=== PATIENT | female | born 1950 | race Caucasian/White ===

== ENCOUNTER 2017-12-03 15:48 | Emergency (ER) | payer MEDICARE, OTHER ==
[2017-12-03 16:07] VITALS: BP 118/84
[2017-12-03] MEDS ORDERED: Albuterol/Ipratropium 3.0-0.5 MG/3 ML Neb Soln NEB ONE (16:54)
--- NOTE | 2017-12-03 17:04 | EDM.PDOC ---
Scribed by Lian Le 12/03/17 [id number] for Manfred Herring MD ED HPI GENERAL MEDICAL PROBLEM - General Chief Complaint: Lower Extremity Injury/Pain Stated Complaint: ANKLE/CALF SWOLLEN,PAINFUL [id number] Time Seen by Provider: 12/03/17 16:36 Source of Information: Reports: Patient, RN, RN Notes Reviewed History Limitations: Reports: No Limitations - History of Present Illness INITIAL COMMENTS - FREE TEXT/NARRATIVE: Patient presents with complaint of gradual onset of right calf tenderness, which has become severely painful with mild swelling. Denies injury. This past week she used clearing solution and "burnt her lungs". Since that time she has had some cough with sputum. Denies fever or chills. She has also had a sore throat since that time. She stopped all of her medications last week because swallowing her pills makes her throat worse. She continues to smoke. She has cough with thick green sputum. Duration: Getting Worse Location: Reports: Lower Extremity, Right Quality: Reports: Ache Severity: Severe Improves with: Reports: None Worsens with: Reports: None Left Lower Leg Pain Score (Numeric/FACES): 10 - Related Data Allergies Allergy/AdvReac Type Severity Reaction Status Date / Time No Known Allergies Allergy Verified 11/27/13 13:53 Home Meds: Home Meds Anastrozole [Arimidex] 1 mg PO DAILY 11/27/13 [History] Aspirin [Aspirin EC] 325 mg PO DAILY PRN 11/27/13 [History] Calcium Carbonate/Vitamin D3 [Calcium 600 + Vit D Tablet] 1 each PO DAILY [History] Isosorbide Mononitrate [Isosorbide Mononitrate ER] 30 mg PO DAILY 11/27/13 [ History] Lisinopril 5 mg PO DAILY 11/27/13 [History] Metoprolol Succinate [Toprol XL] 50 mg PO DAILY 11/27/13 [History] Nitroglycerin [Nitrostat] 0.4 mg SL ASDIRECTED PRN 11/27/13 [History] Simvastatin [Zocor] 20 mg PO ACBRKBED 11/27/13 [History] Sertraline [Zoloft] 25 mg PO DAILY 12/18/13 [History] Aspirin [Adult Low Dose Aspirin EC] 81 mg PO DAILY 08/13/14 [History] Past Medical History HEENT History: Reports: Impaired Vision Cardiovascular History: Reports: High Cholesterol, Hypertension Respiratory History: Reports: COPD Social & Family History - Family History Family Medical History: Noncontributory - Tobacco Use Smoking Status *Q: Current Every Day Smoker Years of Tobacco use: 50 Packs/Tins Daily: 1.5 - Caffeine Use Caffeine Use: Reports: Coffee - Alcohol Use Days Per Week of Alcohol Use: 3 Number of Drinks Per Day: 2 Total Drinks Per Week: 6 - Recreational Drug Use Recreational Drug Use: No Review of Systems - Review of Systems Review Of Systems: ROS reveals no pertinent complaints other than HPI. ED EXAM, GENERAL - Physical Exam Exam: See Below Exam Limited By: No Limitations General Appearance: Other (chronically ill appearing and frail) Nose: Normal Inspection, Normal Mucosa, No Blood Throat/Mouth: Other (pharyngeal erythema.) Head: Atraumatic, Normocephalic Neck: Normal Inspection, Supple, Non-Tender, Full Range of Motion Respiratory/Chest: No Respiratory Distress, No Accessory Muscle Use, Chest Non- Tender, Decreased Breath Sounds (inthe bases.), Crackles, Wheezing, Prolonged Expiration. No: Rales, Rhonchi Cardiovascular: Regular Rate, Rhythm, Tachycardia Extremities: Normal Range of Motion, Slow Capillary Refill (bilateral lower extremities. ), Dedra's Sign (right ). No: Increased Warmth, Mottled, Pallor, Redness Neurological: Alert, Oriented, No Motor/Sensory Deficits Psychiatric: Normal Mood Skin Exam: Warm, Dry, Intact, Normal Color, No Rash Course - Vital Signs Last Recorded V/S: Last Vital Signs Temp 36.0 C 12/03/17 16:06 Pulse 111 H 12/03/17 16:06 Resp 16 12/03/17 16:06 BP 118/84 12/03/17 16:06 Pulse Ox 98 12/03/17 16:06 - Orders/Labs/Meds Orders: Active Orders 24 hr Category Date Time Status RT Aerosol Therapy [RC] ASDIRECTED Care 12/03/17 16:57 Active CULTURE SPUTUM + SMEAR [RM] Stat Lab 12/03/17 16:56 Ordered Meds: Medications Discontinued Medications Generic Name Dose Route Start Last Admin Trade Name Freq PRN Reason Stop Dose Admin Albuterol/Ipratropium 3 ml 12/03/17 16:54 Duoneb 3.0-0.5 Mg/3 Ml NEB 12/03/17 16:55 ONETIME ONE Departure - Departure Time of Disposition: 17:00 Disposition: DC/Tfer to Acute Hospital 02 Condition: Serious Clinical Impression: Pain of right lower extremity, COPD with exacerbation DVT (deep venous thrombosis) Qualifiers: DVT location: lower extremity Affected thrombotic vein of extremity: unspecified vein of extremity Chronicity: acute Laterality: right Qualified Code (s): I82.401 - Acute embolism and thrombosis of unspecified deep veins of right lower extremity - Discharge Information Forms: ED Department Discharge, Interfacility Transfer EMTALA - My Orders Last 24 Hours: My Active Orders 12/03/17 16:56 CULTURE SPUTUM + SMEAR [RM] Stat 12/03/17 16:57 RT Aerosol Therapy [RC] ASDIRECTED - Assessment/Plan Last 24 Hours: My Active Orders 12/03/17 16:56 CULTURE SPUTUM + SMEAR [RM] Stat 12/03/17 16:57 RT Aerosol Therapy [RC] ASDIRECTED I have read and agree with the documentation that has been completed regarding this visit. By signing this record, I attest that the documentation was completed in my physical presence and is an accurate record of the encounter.
== END 2017-12-03 17:28 ==
LOC: DL.ED 15:48
DX: I82.401 Acute embolism and thrombosis of unspecified deep veins of right lower extremity (principal); J44.1 Chronic obstructive pulmonary disease with (acute) exacerbation; I10 Essential (primary) hypertension; E78.00 Pure hypercholesterolemia, unspecified; F17.210 Nicotine dependence, cigarettes, uncomplicated; Z79.82 Long term (current) use of aspirin; Z79.899 Other long term (current) drug therapy
CPT/HCPCS: 94640; 99284

== ENCOUNTER 2018-02-08 21:27 | Emergency (ER) | payer MEDICARE, OTHER ==
[2018-02-08 21:56] VITALS: BP 158/81
[2018-02-08 23:22] LABS: CHLORIDE,CL 102 mmol/L (101-111); SODIUM,NA 139 mmol/L (135-145)
--- NOTE | 2018-02-08 23:45 | EDM.PDOC ---
ED HPI GENERAL MEDICAL PROBLEM - General Chief Complaint: Lower Extremity Injury/Pain Stated Complaint: [id number] BLOOD CLOT IN LEG Time Seen by Provider: 02/08/18 22:00 Source of Information: Reports: Patient History Limitations: Reports: No Limitations - History of Present Illness INITIAL COMMENTS - FREE TEXT/NARRATIVE: c/o swelling in both legs past week,, seemed worse tonight [employer], now better after having feet elevated. Hx blood clots 3 months ago. Off warfarin one month , no pain. Smoker Bilateral Lower Leg Pain Score (Numeric/FACES): 8 - Related Data Allergies Allergy/AdvReac Type Severity Reaction Status Date / Time No Known Allergies Allergy Verified 02/08/18 21:43 Home Meds: Home Meds Anastrozole [Arimidex] 1 mg PO DAILY 11/27/13 [History] Aspirin [Aspirin EC] 325 mg PO DAILY PRN 11/27/13 [History] Calcium Carbonate/Vitamin D3 [Calcium 600 + Vit D Tablet] 1 each PO DAILY [History] Isosorbide Mononitrate [Isosorbide Mononitrate ER] 30 mg PO DAILY 11/27/13 [ History] Lisinopril 5 mg PO DAILY 11/27/13 [History] Metoprolol Succinate [Toprol XL] 50 mg PO DAILY 11/27/13 [History] Nitroglycerin [Nitrostat] 0.4 mg SL ASDIRECTED PRN 11/27/13 [History] Simvastatin [Zocor] 20 mg PO ACBRKBED 11/27/13 [History] Sertraline [Zoloft] 25 mg PO DAILY 12/18/13 [History] Aspirin [Adult Low Dose Aspirin EC] 81 mg PO DAILY 08/13/14 [History] Past Medical History HEENT History: Reports: Impaired Vision Cardiovascular History: Reports: Blood Clots/VTE/DVT, High Cholesterol, Hypertension, Stents Respiratory History: Reports: COPD Oncologic (Cancer) History: Reports: Breast - Infectious Disease History Infectious Disease History: Reports: Chicken Pox, Measles - Past Surgical History HEENT Surgical History: Reports: Tonsillectomy GI Surgical History: Reports: Appendectomy, Other (See Below) Other GI Surgeries/Procedures: twisted bowel Female Surgical History: Reports: Hysterectomy, Mastectomy Oncologic Surgical History: Reports: Mastectomy Social & Family History - Family History Family Medical History: Noncontributory - Tobacco Use Smoking Status *Q: Current Every Day Smoker Years of Tobacco use: 55 Packs/Tins Daily: 2 Second Hand Smoke Exposure: Yes - Caffeine Use Caffeine Use: Reports: Coffee, Soda - Recreational Drug Use Recreational Drug Use: No Review of Systems - Review of Systems Review Of Systems: See Below Constitutional: Reports: No Symptoms Eyes: Reports: No Symptoms Ears: Reports: No Symptoms Nose: Reports: No Symptoms Mouth/Throat: Reports: No Symptoms Respiratory: Denies: Shortness of Breath, Wheezing, Pleuritic Chest Pain, Cough Cardiovascular: Reports: Edema GI/Abdominal: Reports: No Symptoms Genitourinary: Reports: No Symptoms Musculoskeletal: Denies: Leg Pain Skin: Reports: No Symptoms ED EXAM, GENERAL - Physical Exam Exam: See Below Exam Limited By: No Limitations General Appearance: Alert, No Apparent Distress, Anxious Ears: Normal External Exam, Normal TMs Nose: Normal Inspection Throat/Mouth: Normal Inspection, Normal Oropharynx Head: Atraumatic, Normocephalic Neck: Normal Inspection Respiratory/Chest: No Respiratory Distress, Lungs Clear, Normal Breath Sounds Cardiovascular: Normal Peripheral Pulses, Regular Rate, Rhythm. No: No Edema ( trace) GI/Abdominal: Normal Bowel Sounds, Soft Extremities: Normal Inspection, Normal Range of Motion, Pedal Edema (1) Neurological: Alert, Oriented, Normal Cognition, Normal Gait, No Motor/Sensory Deficits Psychiatric: Normal Affect, Anxious Skin Exam: Warm, Dry, Intact, Normal Color Course - Vital Signs Last Recorded V/S: Last Vital Signs Temp 98.6 F 02/08/18 21:45 Pulse 72 02/08/18 21:45 Resp 16 02/08/18 21:45 BP 158/81 H 02/08/18 21:45 Pulse Ox 99 02/08/18 21:45 - Orders/Labs/Meds Labs: Laboratory Tests 02/08/18 02/08/18 02/08/18 Range/Units 22:46 22:46 22:46 WBC 8.0 (5.0-10.0) 10^3/uL RBC 4.11 L (4.2-5.4) 10^6/uL Hgb 13.8 (12.0-16.0) g/dL Hct 40.2 (37.0-47.0) % MCV 97.8 (80-100) fL MCH 33.6 (27.0-34.0) pg MCHC 34.3 (33.0-35.0) g/dL RDW Not Reportable RDW Coeff of Antelmo Not Reportable Plt Count 313 (150-450) 10^3/uL MPV Not Reportable Neutrophils % (Manual) 63 (42-75) % Lymphocytes % (Manual) 31 (20-50) % Monocytes % (Manual) 6 (2-8) % PT 8.7 L (9.0-12.0) SEC INR 0.9 (0.9-1.2) D-Dimer, Quantitative 363 (0-400) ng/mL Sodium 139 (135-145) mmol/L Potassium 3.2 L (3.6-5.0) mmol/L Chloride 102 (101-111) mmol/L Carbon Dioxide 30.0 (21.0-31.0) mmol/L Anion Gap 10.2 BUN 6 L (7-18) mg/dL Creatinine 0.8 (0.6-1.3) mg/dL Est Cr Clr Drug Dosing 45.62 mL/min Estimated GFR (MDRD) > 60 BUN/Creatinine Ratio 7.50 Glucose 86 (74-105) mg/dL Calcium 9.4 (8.4-10.2) mg/dl Total Bilirubin 0.7 (0.2-1.0) mg/dL AST 40 (10-42) IU/L ALT 36 (10-60) IU/L Alkaline Phosphatase 55 (42-121) IU/L Total Protein 6.2 L (6.7-8.2) g/dl Albumin 3.7 (3.2-5.5) g/dl Globulin 2.5 Albumin/Globulin Ratio 1.48 Departure - Departure Time of Disposition: 23:46 Disposition: Home, Self-Care 01 Condition: Good Clinical Impression: Peripheral edema, Hx of blood clots - Discharge Information Instructions: Deep Vein Thrombosis Referrals: Rox Chadwick PA [Primary Care Provider] - Forms: ED Department Discharge Additional Instructions: elevate extremities at night follow up in clinic this week Aspirin 81mg daily
== END 2018-02-08 23:52 | disposition home or self-care (01) ==
LOC: DL.ED 21:27
DX: R60.9 Edema, unspecified (principal); J44.9 Chronic obstructive pulmonary disease, unspecified; I10 Essential (primary) hypertension; F17.210 Nicotine dependence, cigarettes, uncomplicated; Z79.82 Long term (current) use of aspirin; Z79.899 Other long term (current) drug therapy; Z86.2 Personal history of diseases of the blood and blood-forming organs and certain disorders involving the immune mechanism
CPT/HCPCS: 36415; 80053; 85007; 85027; 85379; 85610; 99283

== ENCOUNTER 2019-10-04 13:41 | Inpatient (IN) | payer MEDICARE, OTHER ==
[2019-10-04] MEDS ORDERED: Acetaminophen 325 MG Tab PO PRN (14:08)
[2019-10-04] MEDS ORDERED: Ondansetron 4 MG/2 ML SDV IVPUSH PRN (14:08)
[2019-10-04] MEDS: Sodium Chloride 0.9% 1,000 ML IV SCH ×2 (14:33→22:32)
[2019-10-04] MEDS: amLODIPine 5 MG Tab PO SCH (14:36)
[2019-10-04] MEDS ORDERED: Sodium Chloride 0.9% 10 ML Syringe FLUSH PRN (14:41)
--- NOTE | 2019-10-04 14:43 | PCM.HP ---
H&P History of Present Illness - General Date of Service: 10/04/19 Admit Problem/Dx: Admission Diagnosis/Problem Admission Diagnosis/Problem Hyponatremia with decreased serum osmolality Source of Information: Patient History Limitations: Reports: No Limitations - History of Present Illness Initial Comments - Free Text/Narative: The patient is a 69-year-old female with medical history of coronary artery disease, hypertension, previous DVT on chronic anticoagulation, depression, history of breast cancer. Patient presented to the clinic today for evaluation of hypertension. Recently changes were made to her blood pressure medications. Hydrochlorothiazide was added. Today laboratory studies showed a patient's sodium was 118. Indicates that she feels somewhat dizzy which she describes as lightheadedness. Has generalized weakness and poor appetite. Has not been eating well. Tends to sleep a lot lately. - Related Data Allergies/Adverse Reactions: Allergies Allergy/AdvReac Type Severity Reaction Status Date / Time No Known Allergies Allergy Verified 10/04/19 14:08 Home Medications: Home Meds Metoprolol Succinate [Toprol XL] 50 mg PO DAILY 11/27/13 [History] Nitroglycerin [Nitrostat] 0.4 mg SL ASDIRECTED PRN 11/27/13 [History] Famotidine [Pepcid] 20 mg PO 199910/04/19 [History] Hydrochlorothiazide [Microzide] 12.5 mg PO 1200 10/04/19 [History] Warfarin Sodium [Coumadin] 1.25 mg PO .MONWEDFRI 10/04/19 [History] Warfarin Sodium [Coumadin] 2.5 mg PO .SUNTUETHURSAT 10/04/19 [History] Past Medical History HEENT History: Reports: Impaired Vision Cardiovascular History: Reports: Blood Clots/VTE/DVT, High Cholesterol, Hypertension, Stents Respiratory History: Reports: COPD Oncologic (Cancer) History: Reports: Breast - Infectious Disease History Infectious Disease History: Reports: Chicken Pox, Measles - Past Surgical History HEENT Surgical History: Reports: Tonsillectomy GI Surgical History: Reports: Appendectomy, Other (See Below) Other GI Surgeries/Procedures: twisted bowel Female Surgical History: Reports: Hysterectomy, Mastectomy Oncologic Surgical History: Reports: Mastectomy Social & Family History - Family History Family Medical History: Noncontributory - Caffeine Use Caffeine Use: Reports: Coffee, Soda H&P Review of Systems - Review of Systems: Review Of Systems: See Below General: Reports: Weakness HEENT: Reports: No Symptoms Pulmonary: Reports: No Symptoms Cardiovascular: Reports: No Symptoms Gastrointestinal: Reports: No Symptoms Genitourinary: Reports: No Symptoms Musculoskeletal: Reports: No Symptoms Skin: Reports: No Symptoms Exam - Exam Exam: See Below - Vital Signs Vital Signs: Last Vital Signs Temp 36.2 C 10/04/19 13:58 Pulse 70 10/04/19 13:58 Resp 16 10/04/19 13:58 BP 155/93 H 10/04/19 14:36 Pulse Ox 98 10/04/19 13:58 - Exam General: Alert, Oriented, Cooperative HEENT: Conjunctiva Clear Neck: Supple, Trachea Midline, 2 Lungs: Clear to Auscultation, Normal Respiratory Effort Cardiovascular: Regular Rate, Regular Rhythm GI/Abdominal Exam: Normal Bowel Sounds, Soft, Non-Tender, No Organomegaly, No Distention, No Abnormal Bruit, No Mass, Pelvis Stable Extremities: Normal Inspection, Normal Range of Motion, Non-Tender, No Pedal Edema, Normal Capillary Refill Skin: Warm, Dry, Intact Neurological: Cranial Nerves Intact, Reflexes Equal Bilateral Problem List Initiated/Reviewed/Updated: Yes Orders Last 24hrs: Active Orders 24 hr Category Date Time Status Patient Status [ADT] Routine ADT 10/04/19 14:09 Active Cardiac Monitoring [RC] CONTINUOUS Care 10/04/19 14:10 Active Intake and Output [RC] QSHIFT Care 10/04/19 14:10 Active Oxygen Therapy [RC] PRN Care 10/04/19 14:09 Active Up ad Erlinda [RC] ASDIRECTED Care 10/04/19 14:08 Active VTE/DVT Education [RC] PER UNIT ROUTINE Care 10/04/19 14:09 Active Vital Signs [RC] Q4H Care 10/04/19 14:09 Active Regular Diet [DIET] Diet 10/04/19 Lunch Active BASIC METABOLIC PANEL,BMP [CHEM] AM Lab 10/05/19 05:11 Ordered SODIUM,NA [CHEM] Q6H Lab 10/04/19 20:08 Ordered SODIUM,NA [CHEM] Q6H Lab 10/05/19 02:08 Ordered SODIUM,NA [CHEM] Q6H Lab 10/05/19 08:08 Ordered SODIUM,NA [CHEM] Q6H Lab 10/05/19 14:08 Ordered Acetaminophen [Tylenol] Med 10/04/19 14:08 Active 650 mg PO Q4H PRN Famotidine [Pepcid] Med 10/04/19 20:00 Active 20 mg PO 2000 Heparin Sodium Med 10/04/19 22:00 Active 5,000 units SUBCUT Q8HR Metoprolol Succinate [Toprol XL] Med 10/05/19 09:00 Active 50 mg PO DAILY Ondansetron [Zofran] Med 10/04/19 14:08 Active 4 mg IVPUSH Q6H PRN Sodium Chloride 0.9% [Normal Saline] 1,000 ml Med 10/04/19 14:15 Active IV ASDIRECTED amLODIPine [Norvasc] Med 10/04/19 14:30 Active 5 mg PO DAILY Code Status [Resuscitation Status] Routine Resus Stat 10/04/19 14:19 Ordered Medication Orders Acetaminophen (Tylenol) 650 mg PO Q4H PRN PRN Reason: Pain (Mild 1-3)/fever Amlodipine Besylate (Norvasc) 5 mg PO DAILY [facility] Last Admin: 10/04/19 14:36 Dose: 5 mg Famotidine (Pepcid) 20 mg PO 2000 [facility] Heparin Sodium (Porcine) (Heparin Sodium) 5,000 units SUBCUT Q8HR [place] Sodium Chloride (Normal Saline) 1,000 mls @ 125 mls/hr IV ASDIRECTED [facility] Last Admin: 10/04/19 14:33 Dose: 125 mls/hr Metoprolol Succinate (Toprol Xl) 50 mg PO DAILY [facility] Ondansetron HCl (Zofran) 4 mg IVPUSH Q6H PRN PRN Reason: Nausea/Vomiting Assessment/Plan Comment:: #. Hyponatremia Patient has moderate hyponatremia with sodium of 118 #. Coronary artery disease Status post previous stent placement #. Elevated liver enzymes Reason for this is not obvious Need to be monitored #. Chronic anticoagulation Patient has been on Coumadin INR is subtherapeutic today #. History of breast cancer Hypertension Suboptimal control Plan: Admit patient to medical floor Start patient on intravenous normal saline going at 125 mL an hour Obtain serum sodium every 6 hours Hold hydrochlorothiazide Start patient on amlodipine 5 mg daily Patient's medical chart reviewed.
[2019-10-04] MEDS: Warfarin 5 MG Tab PO ONE (15:58)
[2019-10-04] MEDS: Famotidine 20 MG Tab PO SCH (21:24)
[2019-10-04] MEDS ORDERED: Heparin Sodium 5,000 Units/ML Vial SUBCUT SCH (22:00)
[2019-10-05 06:56] LABS: ANION GAP 13.1; CHLORIDE,CL 97 mmol/L (101-111); SODIUM,NA 131 mmol/L (135-145)
[2019-10-05] MEDS: Sodium Chloride 0.9% 1,000 ML IV SCH (08:12)
[2019-10-05] MEDS: Metoprolol Succinate 50 MG Tab.ER PO SCH (08:43)
[2019-10-05] MEDS: amLODIPine 5 MG Tab PO SCH (08:43)
[2019-10-05] MEDS ORDERED: Potassium Chloride 10 MEQ Tab.ER PO ONE (10:00)
--- NOTE | 2019-10-05 11:37 | PCM.PN ---
- General Info Date of Service: 10/05/19 Subjective Update: Patient offers no new complaint today. Was feeling dizzy but that symptoms improved. Has been on intravenous fluids. Denies shortness of breath. No cough no wheezing. - Review of Systems General: Reports: Malaise HEENT: Reports: No Symptoms - Patient Data Vitals - Most Recent: Last Vital Signs Temp 36.2 C 10/05/19 08:00 Pulse 72 10/05/19 08:43 Resp 18 10/05/19 08:00 BP 94/62 10/05/19 08:43 Pulse Ox 98 10/05/19 08:00 Weight - Most Recent: 43.182 kg I&O - Last 24 Hours: Intake & Output 10/04/19 10/05/19 10/05/19 22:59 06:59 14:59 Intake Total 966 600 Output Total 1000 450 800 Balance -34 150 -800 Lab Results Last 24 Hours: Laboratory Results - last 24 hr 10/04/19 10/05/19 10/05/19 Range/Units 21:04 02:30 05:30 PT (9.0-12.0) SEC INR (0.9-1.2) Sodium 125 L D 130 L 131 L (135-145) mmol/L Potassium 3.1 L (3.6-5.0) mmol/L Chloride 97 L (101-111) mmol/L Carbon Dioxide 24.0 (21.0-31.0) mmol/L Anion Gap 13.1 BUN 5 L (7-18) mg/dL Creatinine 0.5 L (0.6-1.3) mg/dL Est Cr Clr Drug Dosing 70.35 mL/min Estimated GFR (MDRD) > 60 Glucose 79 (74-105) mg/dL Calcium 8.3 L (8.4-10.2) mg/dl 10/05/19 Range/Units 05:30 PT 11.9 D (9.0-12.0) SEC INR 1.2 (0.9-1.2) Sodium (135-145) mmol/L Potassium (3.6-5.0) mmol/L Chloride (101-111) mmol/L Carbon Dioxide (21.0-31.0) mmol/L Anion Gap BUN (7-18) mg/dL Creatinine (0.6-1.3) mg/dL Est Cr Clr Drug Dosing mL/min Estimated GFR (MDRD) Glucose (74-105) mg/dL Calcium (8.4-10.2) mg/dl Med Orders - Current: Current Medications Acetaminophen (Tylenol) 650 mg PO Q4H PRN PRN Reason: Pain (Mild 1-3)/fever Amlodipine Besylate (Norvasc) 5 mg PO DAILY [facility] Last Admin: 10/05/19 08:43 Dose: 5 mg Famotidine (Pepcid) 20 mg PO 1999 [facility] Last Admin: 10/04/19 21:24 Dose: 20 mg Potassium Chloride/Sodium Chloride (Normal Saline With 40 Meq Kcl) 1,000 mls @ 100 mls/hr IV ASDIRECTED [facility] Metoprolol Succinate (Toprol Xl) 50 mg PO DAILY [facility] Last Admin: 10/05/19 08:43 Dose: 50 mg Ondansetron HCl (Zofran) 4 mg IVPUSH Q6H PRN PRN Reason: Nausea/Vomiting Sodium Chloride (Saline Flush) 10 ml FLUSH ASDIRECTED PRN PRN Reason: Keep Vein Open Warfarin Sodium (Pharmacy To Dose - Warfarin) 1 dose .XX ASDIRECTED [facility] Warfarin Sodium (Coumadin) 5 mg PO ONETIME ONE Stop: 10/05/19 14:01 Discontinued Medications Heparin Sodium (Porcine) (Heparin Sodium) 5,000 units SUBCUT Q8HR [facility] Sodium Chloride (Normal Saline) 1,000 mls @ 125 mls/hr IV ASDIRECTED [facility] Last Admin: 10/05/19 08:12 Dose: 125 mls/hr Potassium Chloride (Klor-Con 10) 20 meq PO ONETIME ONE Stop: 10/05/19 10:01 Warfarin Sodium (Coumadin) 5 mg PO ONETIME ONE Stop: 10/04/19 15:01 Last Admin: 10/04/19 15:58 Dose: 5 mg - Exam General: Alert, Oriented, Cooperative, No Acute Distress Neck: Supple Lungs: Clear to Auscultation Cardiovascular: Regular Rate, Regular Rhythm GI/Abdominal Exam: Normal Bowel Sounds, Soft, Non-Tender, No Organomegaly, No Distention, No Abnormal Bruit, No Mass, Pelvis Stable Extremities: Normal Inspection, Normal Range of Motion, Non-Tender, No Pedal Edema, Normal Capillary Refill Skin: Warm, Dry, Intact Sepsis Event Note - Evaluation Sepsis Screening Result: No Definite Risk - Focused Exam Vital Signs: Vital Signs Temp Pulse Pulse Resp BP BP Pulse Ox 10/05/19 08:43 72 92/64 10/05/19 08:00 36.2 C 72 18 94/62 98 Date Exam was Performed: 10/05/19 Time Exam was Performed: 11:34 - Problem List Review Problem List Initiated/Reviewed/Updated: Yes - My Orders Last 24 Hours: My Active Orders 10/04/19 14:08 Up ad Erlinda [RC] ASDIRECTED Acetaminophen [Tylenol] 650 mg PO Q4H PRN Ondansetron [Zofran] 4 mg IVPUSH Q6H PRN 10/04/19 14:09 Patient Status [ADT] Routine Oxygen Therapy [RC] PRN VTE/DVT Education [RC] PER UNIT ROUTINE Vital Signs [RC] Q4H 10/04/19 14:10 Cardiac Monitoring [RC] Intake and Output [RC] QSHIFT 10/04/19 14:19 Code Status [Resuscitation Status] Routine 10/04/19 14:30 amLODIPine [Norvasc] 5 mg PO DAILY 10/04/19 14:41 Sodium Chloride 0.9% [Saline Flush] 10 ml FLUSH ASDIRECTED PRN Peripheral IV Insertion Adult [OM.PC] Routine 10/04/19 14:42 Peripheral IV Care [RC] 10/04/19 14:45 Pharmacy to Dose - Warfarin 1 dose .XX ASDIRECTED 10/04/19 20:00 Famotidine [Pepcid] 20 mg PO 2000 10/04/19 Lunch Regular Diet [DIET] 10/05/19 09:00 Metoprolol Succinate [Toprol XL] 50 mg PO DAILY 10/05/19 10:00 Sodium Chloride 0.9% with KCl [Normal Saline with 40 mEq KCl] 1,000 ml IV ASDIRECTED 10/05/19 14:00 Warfarin [Coumadin] 5 mg PO ONETIME ONE 10/05/19 14:08 SODIUM,NA [CHEM] Q6H 10/06/19 06:00 BASIC METABOLIC PANEL,BMP [CHEM] Routine INR,PT,PROTHROMBIN TIME [COAG] DAILY 10/07/19 06:00 INR,PT,PROTHROMBIN TIME [COAG] DAILY 10/08/19 06:00 INR,PT,PROTHROMBIN TIME [COAG] DAILY 10/09/19 06:00 INR,PT,PROTHROMBIN TIME [COAG] DAILY 10/10/19 06:00 INR,PT,PROTHROMBIN TIME [COAG] DAILY 10/11/19 06:00 INR,PT,PROTHROMBIN TIME [COAG] DAILY - Plan Plan:: #. Hyponatremia Patient had sodium of 118. Started on intravenous fluids #. Coronary artery disease Status post previous stent placement #. Elevated liver enzymes Reason for this is not obvious Need to be monitored #. Chronic anticoagulation Patient has been on Coumadin INR is subtherapeutic today #. History of breast cancer Hypertension Suboptimal control Plan: Reduce intravenous fluid to 100 mL an hour Discontinue normal saline Start patient on normal saline with potassium chloride 40 mEq at 100 mL an hour Give potassium chloride 20 mEq now Obtain repeat basic metabolic panel
[2019-10-05] MEDS: Sodium Chloride 0.9% with KCl 1,000 ML IV SCH ×2 (12:51→22:52)
[2019-10-05] MEDS ORDERED: Warfarin 5 MG Tab PO ONE ×2 (14:00→17:00)
[2019-10-05] MEDS: Warfarin 5 MG Tab PO ONE (17:07)
[2019-10-05] MEDS: Famotidine 20 MG Tab PO SCH (19:56)
[2019-10-06 07:04] LABS: ANION GAP 12.1; CHLORIDE,CL 107 mmol/L (101-111); SODIUM,NA 135 mmol/L (135-145)
[2019-10-06] MEDS: Metoprolol Succinate 50 MG Tab.ER PO SCH (08:03)
[2019-10-06] MEDS: amLODIPine 5 MG Tab PO SCH (08:03)
[2019-10-06 08:04] VITALS: BP 139/82; PULSE 69
--- NOTE | 2019-10-06 10:33 | PCM.DCSUM1 ---
Discharge Summary - Hospital Course Free Text/Narrative:: The patient was having problem with blood pressure control in the outpatient setting. Adjustments were made to her blood pressure medications. She was on hydrochlorothiazide. Laboratory studies obtained in the clinic showed significant hyponatremia and hypokalemia. Patient was admitted to the medical floor and started on intravenous saline and potassium replacement. We discontinued hydrochlorothiazide and start the patient on amlodipine. Patient is feeling better I will be discharged home. #. Hyponatremia Serum sodium was 118 #. Coronary artery disease Status post previous stent placement #. Elevated liver enzymes #. Chronic anticoagulation Patient has been on Coumadin INR is subtherapeutic #. History of breast cancer Hypertension Improved control - Discharge Data Discharge Date: 10/06/19 Discharge Disposition: Home, Self-Care 01 Condition: Good - Referral to Home Health Primary Care Physician: Rox Chadwick NP - Patient Instructions Diet: Usual Diet as Tolerated Activity: As Tolerated Driving: May Drive Today Other/Special Instructions: BMP in one week. F/up with PMD in one week - Discharge Plan Prescriptions/Med Rec: amLODIPine [Norvasc] 5 mg PO DAILY #90 tablet Home Medications: Home Meds Metoprolol Succinate [Toprol XL] 50 mg PO DAILY 11/27/13 [History] Nitroglycerin [Nitrostat] 0.4 mg SL ASDIRECTED PRN 11/27/13 [History] Famotidine [Pepcid] 20 mg PO 199910/04/19 [History] Hydrochlorothiazide [Microzide] 12.5 mg PO 1200 10/04/19 [History] Warfarin Sodium [Coumadin] 1.25 mg PO .MONWEDFRI 10/04/19 [History] Warfarin Sodium [Coumadin] 2.5 mg PO .SUNTUETHURSAT 10/04/19 [History] amLODIPine [Norvasc] 5 mg PO DAILY #90 tablet 10/06/19 [Rx] Patient Handouts: Hyponatremia, [id number], Amlodipine tablets Referrals: Aixa Shin MD [Physician] - - Discharge Summary/Plan Comment DC Time >30 min.: No - Review of Systems General: Reports: No Symptoms Pulmonary: Reports: No Symptoms Cardiovascular: Reports: No Symptoms Gastrointestinal: Reports: No Symptoms - Patient Data Vitals - Most Recent: Last Vital Signs Temp 36.7 C 10/06/19 08:05 Pulse 69 10/06/19 08:05 Resp 20 10/06/19 08:05 BP 139/82 10/06/19 08:05 Pulse Ox 99 10/06/19 08:05 Weight - Most Recent: 43.182 kg I&O - Last 24 hours: Intake & Output 10/05/19 10/06/19 10/06/19 22:59 06:59 14:59 Intake Total 1560 1031 Output Total 100 525 Balance 1460 506 Lab Results - Last 24 hrs: Laboratory Results - last 24 hr 10/05/19 10/06/19 10/06/19 Range/Units 14:25 06:00 06:00 PT 14.0 H (9.0-12.0) SEC INR 1.4 H (0.9-1.2) Sodium 134 L 135 (135-145) mmol/L Potassium 4.1 (3.6-5.0) mmol/L Chloride 107 (101-111) mmol/L Carbon Dioxide 20.0 L (21.0-31.0) mmol/L Anion Gap 12.1 BUN 4 L (7-18) mg/dL Creatinine 0.5 L (0.6-1.3) mg/dL Est Cr Clr Drug Dosing 70.35 mL/min Estimated GFR (MDRD) > 60 Glucose 79 (74-105) mg/dL Calcium 7.7 L (8.4-10.2) mg/dl Med Orders - Current: Current Medications Acetaminophen (Tylenol) 650 mg PO Q4H PRN PRN Reason: Pain (Mild 1-3)/fever Amlodipine Besylate (Norvasc) 5 mg PO DAILY [facility] Last Admin: 10/06/19 08:03 Dose: 5 mg Famotidine (Pepcid) 20 mg PO 1999 [facility] Last Admin: 10/05/19 19:56 Dose: 20 mg Metoprolol Succinate (Toprol Xl) 50 mg PO DAILY [facility] Last Admin: 10/06/19 08:03 Dose: 50 mg Ondansetron HCl (Zofran) 4 mg IVPUSH Q6H PRN PRN Reason: Nausea/Vomiting Sodium Chloride (Saline Flush) 10 ml FLUSH ASDIRECTED PRN PRN Reason: Keep Vein Open Warfarin Sodium (Pharmacy To Dose - Warfarin) 1 dose .XX ASDIRECTED [facility] Warfarin Sodium (Coumadin) 5 mg PO DAILY@1400 [facility] Stop: 10/06/19 14:01 Discontinued Medications Heparin Sodium (Porcine) (Heparin Sodium) 5,000 units SUBCUT Q8HR [facility] Sodium Chloride (Normal Saline) 1,000 mls @ 125 mls/hr IV ASDIRECTED [facility] Last Admin: 10/05/19 08:12 Dose: 125 mls/hr Potassium Chloride/Sodium Chloride (Normal Saline With 40 Meq Kcl) 1,000 mls @ 100 mls/hr IV ASDIRECTED [facility] Last Admin: 10/05/19 22:52 Dose: 100 mls/hr Potassium Chloride (Klor-Con 10) 20 meq PO ONETIME ONE Stop: 10/05/19 10:01 Last Admin: 10/05/19 12:50 Dose: 20 meq Warfarin Sodium (Coumadin) 5 mg PO ONETIME ONE Stop: 10/04/19 15:01 Last Admin: 10/05/19 17:07 Dose: 5 mg Warfarin Sodium (Coumadin) 5 mg PO ONETIME ONE Stop: 10/05/19 14:01 Last Admin: 10/05/19 17:07 Dose: Not Given Warfarin Sodium (Coumadin) 5 mg PO ONETIME ONE Stop: 10/05/19 17:01 Last Admin: 10/05/19 17:00 Dose: 5 mg - Exam General: Reports: Alert, Oriented, Cooperative, No Acute Distress Neck: Reports: Supple Lungs: Reports: Clear to Auscultation, Normal Respiratory Effort Cardiovascular: Reports: Regular Rate, Regular Rhythm GI/Abdominal Exam: Normal Bowel Sounds, Soft, Non-Tender, No Organomegaly, No Distention, No Abnormal Bruit, No Mass, Pelvis Stable
[2019-10-06] MEDS ORDERED: Warfarin 5 MG Tab PO SCH (14:00)
== END 2019-10-06 11:25 | disposition home or self-care (01) | DRG 641 ==
LOC: UNDOADMIN 13:41 → DL.MS 13:41
PROVIDERS: ADMIT Hospitalist; ATTEND Hospitalist
DX: E87.1 Hypo-osmolality and hyponatremia (principal); E87.6 Hypokalemia; I25.10 Atherosclerotic heart disease of native coronary artery without angina pectoris; I10 Essential (primary) hypertension; R79.89 Other specified abnormal findings of blood chemistry; F32.9 Major depressive disorder, single episode, unspecified; E78.00 Pure hypercholesterolemia, unspecified; J44.9 Chronic obstructive pulmonary disease, unspecified; H54.7 Unspecified visual loss; Z95.5 Presence of coronary angioplasty implant and graft; Z79.01 Long term (current) use of anticoagulants; Z85.3 Personal history of malignant neoplasm of breast; Z86.718 Personal history of other venous thrombosis and embolism; Z90.49 Acquired absence of other specified parts of digestive tract; Z90.710 Acquired absence of both cervix and uterus; Z28.82 Immunization not carried out because of caregiver refusal; Z79.899 Other long term (current) drug therapy; Z90.10 Acquired absence of unspecified breast and nipple
CPT/HCPCS: 36415; 80048; 84295; 85610; A9270-GY; J3480; J7030

== ENCOUNTER 2019-10-23 11:33 | Emergency (ER) | payer MEDICARE, OTHER ==
[2019-10-23 11:48] VITALS: BP 110/76; PULSE 101
--- NOTE | 2019-10-23 11:56 | EDM.PDOC ---
ED HPI GENERAL MEDICAL PROBLEM - General Chief Complaint: Chest Pain Stated Complaint: CHEST PAIN Time Seen by Provider: 10/23/19 11:50 Source of Information: Reports: Patient History Limitations: Reports: No Limitations - History of Present Illness INITIAL COMMENTS - FREE TEXT/NARRATIVE: This 69 yo female patient was sent to the ED from the [facility] due to chest pain and changes in her EKG. The patient reports she has been experiencing chest pain since she was discharged from the hospital on . The patient was hospitalized to to difficulties controlling her hypertension , hyponatremia and hypokalemia. The discharge not indicates the patient was doing better on discharge, but no documentation of the patient experiencing chest pain. The patient reports she was in the [facility] yesterday and was noted to have some EKG changes. The patient was set up to see cardiology today and was sent to the ED after a televisit. The patient reports she has had diffuse chest pain across the middle of her chest with no recent changes in her symptoms. The patient reports she has noticed increased weakness since discharge. Onset: Other Duration: Constant Location: Reports: Chest Quality: Reports: Other Severity: Moderate Improves with: Reports: None Worsens with: Reports: None Context: Reports: Other Associated Symptoms: Reports: No Other Symptoms Bilateral Chest Pain Score (Numeric/FACES): 4 - Related Data Allergies Allergy/AdvReac Type Severity Reaction Status Date / Time No Known Allergies Allergy Verified 10/04/19 14:08 Home Meds: Home Meds Metoprolol Succinate [Toprol XL] 50 mg PO DAILY 11/27/13 [History] Nitroglycerin [Nitrostat] 0.4 mg SL ASDIRECTED PRN 11/27/13 [History] Famotidine [Pepcid] 20 mg PO 199910/04/19 [History] Warfarin Sodium [Coumadin] 1.25 mg PO .MONWEDFRI 10/04/19 [History] Warfarin Sodium [Coumadin] 2.5 mg PO .SUNTUETHURSAT 10/04/19 [History] hydroCHLOROthiazide [Microzide] 12.5 mg PO 1200 10/04/19 [History] amLODIPine [Norvasc] 5 mg PO DAILY #90 tablet 10/06/19 [Rx] Past Medical History HEENT History: Reports: Impaired Vision Cardiovascular History: Reports: Blood Clots/VTE/DVT, High Cholesterol, Hypertension, Stents Respiratory History: Reports: COPD Gastrointestinal History: Reports: Bowel Obstruction, Fatty Liver Psychiatric History: Reports: Addiction Hematologic History: Reports: Anticoagulation Therapy Oncologic (Cancer) History: Reports: Breast - Infectious Disease History Infectious Disease History: Reports: Chicken Pox, Measles - Past Surgical History HEENT Surgical History: Reports: Tonsillectomy GI Surgical History: Reports: Appendectomy, Other (See Below) Other GI Surgeries/Procedures: twisted bowel Female Surgical History: Reports: Hysterectomy, Mastectomy Oncologic Surgical History: Reports: Mastectomy Dermatological Surgical History: Reports: Skin Graft Social & Family History - Family History Family Medical History: Noncontributory - Tobacco Use Smoking Status *Q: Current Every Day Smoker Years of Tobacco use: 35 Packs/Tins Daily: 0.7 Second Hand Smoke Exposure: Yes - Caffeine Use Caffeine Use: Reports: Coffee, Soda - Recreational Drug Use Recreational Drug Use: No ED ROS GENERAL - Review of Systems Review Of Systems: Comprehensive ROS is negative, except as noted in HPI. ED EXAM, GENERAL - Physical Exam Exam: See Below Exam Limited By: No Limitations General Appearance: Alert, WD/WN, Moderate Distress Eye Exam: Bilateral Eye: EOMI, Normal Inspection, PERRL Ears: Normal External Exam, Normal Canal, Hearing Grossly Normal, Normal TMs Nose: Normal Inspection, Normal Mucosa, No Blood Throat/Mouth: Normal Inspection, Normal Lips, Normal Teeth, Normal Gums, Normal Oropharynx, Normal Voice, No Airway Compromise Head: Atraumatic, Normocephalic Neck: Normal Inspection, Supple, Non-Tender, Full Range of Motion Respiratory/Chest: No Respiratory Distress, Lungs Clear, Normal Breath Sounds, No Accessory Muscle Use, Chest Non-Tender Cardiovascular: Normal Peripheral Pulses, Regular Rate, Rhythm, No Edema, No Gallop, No JVD, No Murmur, No Rub GI/Abdominal: Normal Bowel Sounds, Soft, Non-Tender, No Organomegaly, No Distention, No Abnormal Bruit, No Mass (Female) Exam: Deferred Rectal (Female) Exam: Deferred Back Exam: Normal Inspection, Full Range of Motion, NT Extremities: Normal Inspection, Normal Range of Motion, Non-Tender, Normal Capillary Refill, No Pedal Edema Neurological: Alert, Oriented, CN II-XII Intact, Normal Cognition, Normal Gait, Normal Reflexes, No Motor/Sensory Deficits Psychiatric: Normal Affect, Normal Mood Skin Exam: Warm, Dry, Intact, Normal Color, No Rash Lymphatic: No Adenopathy Course - Vital Signs Last Recorded V/S: Last Vital Signs Temp 37.0 C 10/23/19 11:43 Pulse 101 H 10/23/19 11:43 Resp 18 10/23/19 11:43 BP 110/76 10/23/19 11:43 Pulse Ox 100 10/23/19 11:43 - Orders/Labs/Meds Orders: Active Orders 24 hr Category Date Time Status EKG Documentation Completion [RC] URGENT Care 10/23/19 11:37 Active CULTURE URINE [RM] Urgent Lab 10/23/19 13:30 Received Labs: Laboratory Tests 10/23/19 10/23/19 10/23/19 Range/Units 12:06 12:06 12:06 WBC 7.5 (5.0-10.0) 10^3/uL RBC 4.25 (4.2-5.4) 10^6/uL Hgb 15.2 (12.0-16.0) g/dL Hct 42.2 (37.0-47.0) % MCV 99.3 (80-100) fL MCH 35.8 H (27.0-34.0) pg MCHC 36.0 H (33.0-35.0) g/dL Plt Count 417 D (150-450) 10^3/uL Neut % (Auto) 72.1 (42.2-75.2) % Lymph % (Auto) 13.8 L (20.5-50.1) % [place] % (Auto) 13.5 H (2-8) % Eos % (Auto) 0.3 L (1.0-3.0) % Baso % (Auto) 0.3 (0.0-1.0) % PT 24.6 H D (9.0-12.0) SEC INR 2.5 H (0.9-1.2) D-Dimer, Quantitative < 100 (0-400) ng/mL Sodium 135 (135-145) mmol/L Potassium 3.7 (3.6-5.0) mmol/L Chloride 99 L (101-111) mmol/L Carbon Dioxide 25.0 (21.0-31.0) mmol/L Anion Gap 14.7 BUN 8 (7-18) mg/dL Creatinine 0.6 (0.6-1.3) mg/dL Est Cr Clr Drug Dosing 56.04 mL/min Estimated GFR (MDRD) > 60 BUN/Creatinine Ratio 13.33 Glucose 110 H (74-105) mg/dL Calcium 9.6 D (8.4-10.2) mg/dl Total Bilirubin 0.7 (0.2-1.0) mg/dL AST 24 (10-42) IU/L ALT 18 (10-60) IU/L Alkaline Phosphatase 58 (42-121) IU/L Troponin I < 0.02 (0.00-0.02) ng/ml Total Protein 7.5 (6.7-8.2) g/dl Albumin 4.6 (3.2-5.5) g/dl Globulin 2.9 Albumin/Globulin Ratio 1.59 Urine Color (YELLOW) Urine Appearance (CLEAR) Urine pH (5.0-9.0) Ur Specific [place] (1.005-1.030) Urine Protein (NEGATIVE) Urine Glucose (UA) (NEGATIVE) Urine Ketones (NEGATIVE) Urine Occult Blood (NEGATIVE) Urine Nitrite (NEGATIVE) Urine Bilirubin (NEGATIVE) Urine Urobilinogen (0.2-1.0) mg/dL Ur Leukocyte Esterase (NEGATIVE) Urine RBC /HPF Urine WBC (0-5/HPF) /HPF Ur Epithelial Cells (NOT SEEN) /HPF Calcium Oxalate Crystal (NOT SEEN) /HPF Amorphous Sediment (NOT SEEN) /HPF Urine Bacteria (0-FEW/HPF) /HPF Urine Mucus (NOT SEEN) /LPF 10/23/19 Range/Units 13:30 WBC (5.0-10.0) 10^3/uL RBC (4.2-5.4) 10^6/uL Hgb (12.0-16.0) g/dL Hct (37.0-47.0) % MCV (80-100) fL MCH (27.0-34.0) pg MCHC (33.0-35.0) g/dL Plt Count (150-450) 10^3/uL Neut % (Auto) (42.2-75.2) % Lymph % (Auto) (20.5-50.1) % [place]rill % (Auto) (2-8) % Eos % (Auto) (1.0-3.0) % Baso % (Auto) (0.0-1.0) % PT (9.0-12.0) SEC INR (0.9-1.2) D-Dimer, Quantitative (0-400) ng/mL Sodium (135-145) mmol/L Potassium (3.6-5.0) mmol/L Chloride (101-111) mmol/L Carbon Dioxide (21.0-31.0) mmol/L Anion Gap BUN (7-18) mg/dL Creatinine (0.6-1.3) mg/dL Est Cr Clr Drug Dosing mL/min Estimated GFR (MDRD) BUN/Creatinine Ratio Glucose (74-105) mg/dL Calcium (8.4-10.2) mg/dl Total Bilirubin (0.2-1.0) mg/dL AST (10-42) IU/L ALT (10-60) IU/L Alkaline Phosphatase (42-121) IU/L Troponin I (0.00-0.02) ng/ml Total Protein (6.7-8.2) g/dl Albumin (3.2-5.5) g/dl Globulin Albumin/Globulin Ratio Urine Color Yellow (YELLOW) Urine Appearance Turbid (CLEAR) Urine pH 7.0 (5.0-9.0) Ur Specific [place] 1.020 (1.005-1.030) Urine Protein 30 H (NEGATIVE) Urine Glucose (UA) Negative (NEGATIVE) Urine Ketones 40 H (NEGATIVE) Urine Occult Blood Moderate H (NEGATIVE) Urine Nitrite Positive H (NEGATIVE) Urine Bilirubin Negative (NEGATIVE) Urine Urobilinogen 1.0 (0.2-1.0) mg/dL Ur Leukocyte Esterase Large H (NEGATIVE) Urine RBC 10-20 H /HPF Urine WBC Packed H (0-5/HPF) /HPF Ur Epithelial Cells Rare (NOT SEEN) /HPF Calcium Oxalate Crystal Few H (NOT SEEN) /HPF Amorphous Sediment Few (NOT SEEN) /HPF Urine Bacteria Many H (0-FEW/HPF) /HPF Urine Mucus Not seen (NOT SEEN) /LPF Meds: Medications Discontinued Medications Generic Name Dose Route Start Last Admin Trade Name Freq PRN Reason Stop Dose Admin Aspirin 324 mg 10/23/19 13:51 10/23/19 14:03 Aspirin PO 10/23/19 13:52 324 mg ONETIME ONE Administration Departure - Departure Time of Disposition: 14:06 Disposition: Home, Self-Care 01 Condition: Fair Clinical Impression: Chest pain Qualifiers: Chest pain type: chest pain due to myocardial ischemia Ischemic chest pain type : unspecified angina pectoris type Qualified Code(s): I25.9 - Chronic ischemic heart disease, unspecified Forms: Interfacility Transfer EMTALA Care Plan Goals: Discussed the patient's history, examination, lab, EKG and recommendation from Dr. Dupree with Dr. Garcia. Dr. Garcia accepted the patient for continued evaluation and further management as an inpatient at [facility]. The patient will be transported by [facility]. Sepsis Event Note - Evaluation Sepsis Screening Result: No Definite Risk - Focused Exam Vital Signs: Vital Signs Temp Pulse Resp BP Pulse Ox 10/23/19 11:43 37.0 C 101 H 18 110/76 100 Date Exam was Performed: 10/23/19 Time Exam was Performed: 14:06 - My Orders Last 24 Hours: My Active Orders 10/23/19 11:37 EKG Documentation Completion [RC] URGENT 10/23/19 13:30 CULTURE URINE [RM] Urgent - Assessment/Plan Last 24 Hours: My Active Orders 10/23/19 11:37 EKG Documentation Completion [RC] URGENT 10/23/19 13:30 CULTURE URINE [RM] Urgent
--- NOTE | 2019-10-23 12:09 | CR ---
EXAMINATION: Chest 1V Frontal SEX: Female AGE: 69 years CLINICAL HISTORY: 69-year-old female emergency department complaining of CHEST PAIN. INTERPRETATION: 1. External salesperson women's dresses leads. Normal cardiac silhouette. 2. No pulmonary vascular congestion, cephalization of vascular flow, alveolar edema or dependent pleural effusion. 3. No lung mass, hilar lymphadenopathy or focal lobar pneumonia. 4. No atelectasis/collapse. 5. No pneumothorax or pneumomediastinum. No free subdiaphragmatic air. CONCLUSION: No acute cardiopulmonary abnormality.
[2019-10-23 12:32] LABS: ANION GAP 14.7; CHLORIDE,CL 99 mmol/L (101-111); SODIUM,NA 135 mmol/L (135-145)
[2019-10-23] MEDS ORDERED: Aspirin 81 MG Tab.Chew PO ONE (13:51)
== END 2019-10-23 14:36 | disposition home or self-care (01) ==
LOC: DL.ED 11:33
DX: I25.9 Chronic ischemic heart disease, unspecified (principal); I10 Essential (primary) hypertension; E78.00 Pure hypercholesterolemia, unspecified; J44.9 Chronic obstructive pulmonary disease, unspecified; F17.210 Nicotine dependence, cigarettes, uncomplicated; Z86.718 Personal history of other venous thrombosis and embolism; Z79.01 Long term (current) use of anticoagulants; Z79.899 Other long term (current) drug therapy
CPT/HCPCS: 36415; 71045; 80053; 81001; 84484; 85025; 85379; 85610; 87086; 87088; 87186; 93005; 99285; A9270

== ENCOUNTER 2025-05-26 20:47 | Inpatient (IN) | payer MEDICARE, OTHER ==
[2025-05-26] MEDS ORDERED: Sodium Chloride 0.9% 10 ML Syringe FLUSH PRN (20:58)
[2025-05-26 21:37] LABS: BASOPHILS PERCENT AUTO 0.2 % (0.0-1.0); EOSINOPHILS PERCENT AUTO 0.0 % (1.0-3.0); LYMPHOCYTES PERCENT AUTO 6.6 % (20.5-50.1); MONOCYTES PERCENT AUTO 8.9 % (2-8); NEUTROPHILS PERCENT AUTO 84.3 % (42.2-75.2); PLATELET COUNT,PLT 305 10^3/uL (150-450); RED BLOOD CELL COUNT 4.00 10^6/uL (4.2-5.4); WHITE BLOOD CELL COUNT,WBC 11.5 10^3/uL (5.0-10.0)
[2025-05-26 21:56] LABS: INR 1.0 (0.9-1.2); PTT,PARTIAL THROMBOPLSTIN TIME 28.1 SEC (22.0-34.0)
[2025-05-26 22:03] LABS: LACTIC ACID 2.4 mmol/L (0.4-2.0)
[2025-05-26 22:11] LABS: A/G RATIO 1.2; ALANINE AMINOTRANSFERASE,ALT 19 U/L (14-59); ASPARTATE AMNIOTRANSFERASE,AST 50 U/L (15-37); BILIRUBIN TOTAL 1.1 mg/dL (0.2-1.0); BLOOD UREA NITROGEN,BUN 10 mg/dL (7-18); CARBON DIOXIDE,CO2 21 mmol/L (21-32); CHLORIDE,CL 88 mmol/L (98-107); CREATININE 0.72 mg/dL (0.55-1.02); EST CRCL DRUG DOSING (CG) 42.83 mL/min; GLUCOSE RANDOM 111 mg/dL (70-99); POTASSIUM,K 4.4 mmol/L (3.5-5.1); PROTEIN TOTAL,TP 6.8 g/dL (6.4-8.2); SODIUM,NA 124 mmol/L (136-145)
[2025-05-26 22:14] LABS: CREATINE KINASE,CK 1225 U/L (16-191); ESTIMATED GFR 86 mL/min (>=60); ETHANOL BLOOD MEDICAL < 3 mg/dL (0)
[2025-05-26 23:25] LABS: APPEARANCE,URINE SLIGHTLY CLOUDY (CLEAR); GLUCOSE,URINE NEGATIVE (NEGATIVE); OCCULT BLOOD,URINE MODERATE (NEGATIVE)
[2025-05-26 23:57] LABS: EPITHELIAL CELLS,URINE FEW /HPF (NOT SEEN)
[2025-05-27] MEDS ORDERED: Acetaminophen/HYDROcodone 325-5 MG Tab PO PRN (00:10)
[2025-05-27] MEDS ORDERED: Magnesium Hydroxide 400 MG/5 ML Susp 30 ML Cup PO PRN (00:10)
[2025-05-27] MEDS ORDERED: Ondansetron 4 MG/2 ML SDV IVPUSH PRN (00:10)
[2025-05-27] MEDS ORDERED: Sennosides/Docusate Sodium 50-8.6 MG Tab PO PRN (00:10)
[2025-05-27 06:47] LABS: BASOPHILS PERCENT AUTO 0.2 % (0.0-1.0); EOSINOPHILS PERCENT AUTO 0.8 % (1.0-3.0); LYMPHOCYTES PERCENT AUTO 13.9 % (20.5-50.1); MONOCYTES PERCENT AUTO 15.5 % (2-8); NEUTROPHILS PERCENT AUTO 69.6 % (42.2-75.2); PLATELET COUNT,PLT 291 10^3/uL (150-450); RED BLOOD CELL COUNT 3.48 10^6/uL (4.2-5.4); WHITE BLOOD CELL COUNT,WBC 9.1 10^3/uL (5.0-10.0)
[2025-05-27 07:15] LABS: ALANINE AMINOTRANSFERASE,ALT 17.0 U/L (14-59); ASPARTATE AMNIOTRANSFERASE,AST 41.0 U/L (15-37); BILIRUBIN TOTAL 0.7 mg/dL (0.2-1.0); BLOOD UREA NITROGEN,BUN 6.0 mg/dL (7-18); CARBON DIOXIDE,CO2 22.0 mmol/L (21-32); CHLORIDE,CL 103.0 mmol/L (98-107); CREATINE KINASE,CK 864.0 U/L (16-191); CREATININE 0.66 mg/dL (0.55-1.02); EST CRCL DRUG DOSING (CG) 46.72 mL/min; GLUCOSE RANDOM 64.0 mg/dL (70-99); POTASSIUM,K 3.9 mmol/L (3.5-5.1); PROTEIN TOTAL,TP 5.7 g/dL (6.4-8.2); SODIUM,NA 138.0 mmol/L (136-145)
[2025-05-27 07:18] LABS: A/G RATIO 1.11; ESTIMATED GFR 90.0 mL/min (>=60)
[2025-05-27] MEDS: Saccharomyces Boulardii (Probiotic) 250 MG Cap PO SCH (10:22)
[2025-05-28 07:03] LABS: BLOOD UREA NITROGEN,BUN 3.0 mg/dL (7-18); CARBON DIOXIDE,CO2 24.0 mmol/L (21-32); CHLORIDE,CL 102.0 mmol/L (98-107); CREATINE KINASE,CK 420.0 U/L (16-191); CREATININE 0.58 mg/dL (0.55-1.02); EST CRCL DRUG DOSING (CG) 53.16 mL/min; GLUCOSE RANDOM 63.0 mg/dL (70-99); POTASSIUM,K 3.6 mmol/L (3.5-5.1); SODIUM,NA 139.0 mmol/L (136-145); T4 FREE 0.79 ng/dL (0.76-1.46); TSH ULTRASENSITIVE 2.34 uIU/mL (0.36-3.74)
[2025-05-28 07:10] LABS: ESTIMATED GFR 93.0 mL/min (>=60)
[2025-05-28] MEDS: Cyanocobalamin (Vitamin B12) 1,000 MCG Tab PO SCH (08:31)
[2025-05-29] MEDS: Cholecalciferol (Vitamin D3) 25 MCG Tab PO SCH (10:55)
[2025-05-29 11:28] VITALS: BP 124/95; PULSE 92
== END 2025-05-29 13:00 | disposition home or self-care (01) | DRG 565 ==
LOC: DL.ED 20:47 → DL.MS 22:48
PROVIDERS: ADMIT Internal Medicine; ATTEND Internal Medicine
DX: T79.6XXA Traumatic ischemia of muscle, initial encounter (principal); S00.83XA Contusion of other part of head, initial encounter; R53.1 Weakness; E87.1 Hypo-osmolality and hyponatremia; N39.0 Urinary tract infection, site not specified; E87.20 Acidosis, unspecified; R55 Syncope and collapse; F17.210 Nicotine dependence, cigarettes, uncomplicated; Z66 Do not resuscitate; H54.7 Unspecified visual loss; E78.00 Pure hypercholesterolemia, unspecified; W01.198A Fall on same level from slipping, tripping and stumbling with subsequent striking against other object, initial encounter; I10 Essential (primary) hypertension; J44.9 Chronic obstructive pulmonary disease, unspecified; M81.0 Age-related osteoporosis without current pathological fracture; E83.42 Hypomagnesemia; E87.8 Other disorders of electrolyte and fluid balance, not elsewhere classified; S05.12XA Contusion of eyeball and orbital tissues, left eye, initial encounter; R73.9 Hyperglycemia, unspecified; Z79.899 Other long term (current) drug therapy; Z95.5 Presence of coronary angioplasty implant and graft; Z79.01 Long term (current) use of anticoagulants; Z86.718 Personal history of other venous thrombosis and embolism; Z85.3 Personal history of malignant neoplasm of breast; Z90.89 Acquired absence of other organs; Z90.49 Acquired absence of other specified parts of digestive tract; Z90.710 Acquired absence of both cervix and uterus; Z90.10 Acquired absence of unspecified breast and nipple; W18.30XA Fall on same level, unspecified, initial encounter; Y92.009 Unspecified place in unspecified non-institutional (private) residence as the place of occurrence of the external cause
CPT/HCPCS: 36415; 70450; 70486; 71045; 72125; 80048; 80053; 80307; 81001; 82306; 82550; 83605; 83735; 84439; 84443; 84484; 85025; 85610; 85730; 86140; 87086; 87088; 87186; 93005; 93010; 93306; 93880; 97161-GP; 97165-GO; 97530-GO; 99223; 99232; 99238; 99285; A9270-GY; J0696; J7030